=== PATIENT | female | born 1995 | race Caucasian/White ===

== ENCOUNTER 2018-05-25 14:39 | Emergency (ER) | payer BC ==
[~2018-05-25] VITALS: Ht 157.5 cm; Wt 95.3 kg
[2018-05-25] MEDS ORDERED: VENLAFAXINE HCL25 MG ORAL (14:49)
[2018-05-25] MEDS ORDERED: PERCOCET 10-321 EAC1 PO (14:49)
[2018-05-25] MEDS ORDERED: XANAX0.5 MG ORAL (14:49)
[2018-05-25] MEDS ORDERED: TRILEPTAL600 MG PO (14:49)
[2018-05-25] MEDS ORDERED: ADDERAL20 MG ORAL (14:49)
[2018-05-25] MEDS ORDERED: SEROQUEL200 MG ORAL (14:49)
[2018-05-25] MEDS ORDERED: Morphine Sulfate 2mg/ml Inj IM ONE (15:15)
[2018-05-25] MEDS ORDERED: ROBAXIN-750750 MG PO (15:16)
--- NOTE | 2018-05-25 15:25 | Emergency Room Report ---
History of Present Illness General Chief Complaint: Pain Source: Patient Present Illness HPI Patient is a 22-year-old female presented after increased neck pain. The patient reports having recently attempted to crack her neck and subsequently began having increased pain to the muscles. The patient prior history of chronic pain as well as fibromyalgia. Patient appears he been taking Percocet. She reports taking multiple medications. The patient has prior history of depression. She was noted to have multiple allergies. Patient states that she had not been taking Percocet several days. She reported having increased pain with movements. She denies any fever. Allergies: Coded Allergies: ASPIRIN (Verified Allergy, Severe, 05/25/18) AZITHROMYCIN (Verified Allergy, Unknown, 05/25/18) IBUPROFEN (Verified Allergy, Unknown, 05/25/18) KETOROLAC (Verified Allergy, Unknown, rash, 05/25/18) LEVOFLOXACIN (Verified Allergy, Unknown, rash and itch, 05/25/18) NAPROXEN (Verified Allergy, Unknown, 05/25/18) TRAMADOL (Verified Allergy, Unknown, 05/25/18) Patient History Past Medical History: see triage record Last Menstrual Period: 05/18/18 Reviewed Nursing Documentation: PMH: Agreed; PSxH: Agreed Nursing Documentation-PMH Past Medical History: No History, Except For Hx Asthma: Yes Hx Seizures: Yes Review of Systems All Other Systems: negative except mentioned in HPI Physical Exam Vital Signs Date Time Temp Pulse Resp B/P (MAP) Pulse Ox O2 Delivery O2 Flow Rate FiO2 05/25/18 14:43 98.2 98 18 112/79 96 Room Air 98.2 General Appearance: well appearing, no apparent distress, alert, GCS 15, obese Head: normocephalic, atraumatic ENT: hearing grossly normal, normal voice Neck: supple, limited range of motion, tender lateral Respiratory: no respiratory distress, speaking full sentences Cardiovascular #1: normal inspection, regular rate, rhythm Gastrointestinal: normal inspection, normal bowel sounds, non tender, soft Musculoskeletal: normal inspection, no calf tenderness Neurologic: normal inspection, alert, oriented x3, responsive, storage administrator III-XII nml as tested, cerebellar normal, normal gait Psychiatric: normal inspection, judgement/insight normal, mood/affect normal Skin: normal inspection, no rash Medical Decision Making Diagnostic Impression: Primary Impression: Neck muscle strain ER Course Patient presented for neck pain. Differential diagnosis included muscle strain , vertebral artery dissection, myocardial infarction, cervical fracture, arthritis, spondylolithises. Patient has a benign exam and does not appear to require any further imaging or laboratory testing at this time. Patient was given pain medications. She denied being . Patient was given prescription for muscle relaxant advised to ice her neck. The patient is advised follow-up with her primary care physician. The patient was advised to return if she began having fever weakness to her extremities vomiting or other concerns. Last Vital Signs Date Time Temp Pulse Resp B/P (MAP) Pulse Ox O2 Delivery O2 Flow Rate FiO2 05/25/18 14:43 98.2 98 18 112/79 96 Room Air 98.2 Status: improved Disposition: HOME, SELF-CARE Condition: Stable Scripts Methocarbamol* (ROBAXIN-750*) 750 Mg Tablet 750 MG PO TID, #14 TAB 0 Refills Prov: Ramirez Patel MD 05/25/18 Patient Instructions: Cervical Sprain, [id number] Ramirez Patel MD May 25, 2018 15:25
[2018-05-25 17:03] VITALS: BP 112/79
[2018-05-25 17:07] VITALS: BP 112/79
== END 2018-05-25 16:30 | disposition home or self-care (01) ==
LOC: EMR 15:23
DX: S16.1XXA Strain of muscle, fascia and tendon at neck level, initial encounter (principal); X50.9XXA Other and unspecified overexertion or strenuous movements or postures, initial encounter; Y93.89 Activity, other specified; Y92.9 Unspecified place or not applicable; J45.909 Unspecified asthma, uncomplicated; F32.9 Major depressive disorder, single episode, unspecified; Z88.6 Allergy status to analgesic agent; Z88.8 Allergy status to other drugs, medicaments and biological substances
CPT/HCPCS: 96372; 99283; J2270